=== PATIENT | male | born 1970 | race African-American/Black ===

== ENCOUNTER 2019-01-06 15:04 | Emergency (ER) | payer SELFPAY ==
--- NOTE | 2019-01-06 15:27 | ER Report ---
History and Physical Time Seen By MD: 15:27 HPI/ROS CHIEF COMPLAINT: Cardiac arrest HISTORY OF PRESENT ILLNESS: Patient is a 48-year-old male brought in by EMS after being found obtunded at the [facility] station. Reportedly, the patient had a syncopal episode there and was briefly lucid but suspected to have a blood sugar issue and was initially given juice. Patient became more obtunded by the time of EMS arrival. Patient then became bradycardic and was initially placed by EMS that he developed a wide-complex and EMS reports that they lost pulses. Resuscitation began by EMS and the patient was transported to the emergency department. Patient had been intubated with an 80 endotracheal tube. Patient was pulseless at time of arrival, unresponsive with CPR in progress. REVIEW OF SYSTEMS: Unable to obtain due to patient's unresponsive status Physical Exam General Appearance: Unresponsive, pulseless, no purposeful movement, CPR in progress with a Satish device Eyes: Pupils nonreactive ENT, Mouth: Endotracheal tube in place Respiratory: Bilateral lung sounds auscultated, [id number]-pinh ventilation in process Cardiovascular: PEA Gastrointestinal: Abdomen is soft and nondistended Neurological: Unresponsive, nonreactive, no purposeful movement Skin: Cool and dry Musculoskeletal: No obvious bony deformities present DIFFERENTIAL DIAGNOSIS: After history and physical exam differential diagnosis was considered for pulmonary embolism, cardiac arrest, hypoglycemia, sepsis, hemorrhagic shock, overdose, trauma Medical Decision Making EKG/Imaging Imaging Bedside ultrasound performed ED Course/Re-evaluation ED Course Patient is a 48-year-old male unresponsive found to be obtunded at the [facility] station brought in by EMS in cardiac arrest. EMS reportedly placed the patient due to initial finding of bradycardia at which time patient's rhythm transitions into wide-complex and pulses were lost. Resuscitation was began with Satish device and the patient was intubated by EMS using an 80 endotracheal tube. Magdalena ent had received epinephrine and atropine prior to arrival. Patient was given repeated doses of epinephrine during each round of CPR. Bilateral lung sounds were auscultated, lungs were patent by bedside ultrasound, heart was visualized using bedside ultrasound during rhythm check and was found to be in cardiac standstill. Patient remained in PEA throughout the resuscitation. Pupils were found to be nonreactive. Capnography was found to be less than 12 throughout course of resuscitation. Patient's glucose was noted to be in the 200s. Efforts were determined to be futile and resuscitation was ended at 1515. I updated the patient's regarding the patient's status and efforts of resuscitation. Decision to Disposition Date: Jan 06, 2019 Decision to Disposition Time: 16:15 Depart Departure Impression: Primary Impression: Cardiorespiratory arrest Condition: Disposition: ABRAHAM TRIPATHI Eduin Jan 06, 2019 15:27
== END 2019-01-06 15:30 | disposition expired ==
LOC: ER 15:16
DX: I46.9 Cardiac arrest, cause unspecified (principal)
CPT/HCPCS: 92950; 99285; J0171

== ENCOUNTER → 2019-01-06 | Outpatient (CLI) | payer SELFPAY | LOC: AMB 14:35 | PROVIDERS: ATTEND Nurse Practitioner | DX: R09.2 Respiratory arrest (principal) | CPT/HCPCS: A0425; A0433 ==